=== PATIENT | female | born 1950 | race Hispanic/Latino ===

== ENCOUNTER → 2018-02-21 | Outpatient (CLI) | payer MEDICARE ==
[~2018-02-21] MED LIST: ACET-2160 PO; AEC81 PO; CHOL-9 PO; CYCL10TA7 PO; ESOM40CA54 PO; FLUT1DIS3 IH; IBUP-2070 PO; LEVO100T12 PO; LOSA1TAB37 PO; MELO-106 PO; OMEG100014 PO; PALI3TAB5 PO; PREG75 PO; ROSU10TA27 PO; SITA100T12 PO; TERA2CAP4 PO; TRAM50TA4 PO; VITA150T PO
== END | disposition home or self-care (01) ==
LOC: SHCH 14:57
PROVIDERS: ATTEND Internal Medicine Cardiovascular Disease
DX: I25.10 Atherosclerotic heart disease of native coronary artery without angina pectoris (principal); I10 Essential (primary) hypertension
CPT/HCPCS: 93306

== ENCOUNTER 2018-02-23 07:10 | Observation (INO) | payer MEDICARE ==
[~2018-02-23] VITALS: Ht 157.5 cm; Wt 74.5 kg
[2018-02-23 07:39] LABS: BASOPHILS % (AUTO) 1.2 % (0.0-5.0); EOSINOPHILS % (AUTO) 7.2 % (0.0-8.0); HEMATOCRIT 36.9 % (36-48); MEAN CORPUSCULAR HEMOGLOBIN 29.4 pg (27.0-33.0); MEAN CORPUSCULAR HGB CONC 34.6 g/dL (32.0-36.0); MONOCYTES % (AUTO) 7.2 % (3.0-13.0); NEUTROPHILS % (AUTO) 57.4 % (40.0-77.0); PLATELET COUNT (AUTO) 188 K/uL (130-400); RED BLOOD CELL COUNT(AUTO) 4.34 MIL/uL (4.00-5.50); RED CELL DISTRIBUTION WIDTH 15.1 % (11.0-15.5); WHITE BLOOD COUNT (AUTO) 6.7 K/uL (4.8-10.8)
[2018-02-23] MEDS ORDERED: ASPIRIN 325 MG TABLET ONE (07:42)
[2018-02-23] MEDS ORDERED: NITROGLYCERIN 0.4 MG SL TAB SL ONE (07:43)
[2018-02-23 07:54] LABS: CREATININE 0.9 mg/dL (0.5-1.5); POTASSIUM 3.1 mmol/L (3.5-5.1)
[2018-02-23 07:58] LABS: ALBUMIN 3.7 g/dL (3.5-5.0); BILIRUBIN,TOTAL 0.4 mg/dL (0.2-1.0); TOTAL PROTEIN, SERUM 7.6 g/dL (6.0-8.3)
[2018-02-23 08:00] LABS: INR 0.95 (0.85-1.15); PARTIAL THROMBOPLASTIN TIME 29.4 SEC (26.3-35.5)
[2018-02-23] MEDS ORDERED: POTASSIUM CHLORIDE 20 MEQ ERTAB PO ONE (08:35)
[2018-02-23] MEDS ORDERED: MAGNESIUM 2GM PREMIX 50ML 50 ML IV ONE (09:29)
[2018-02-23] MEDS ORDERED: IOPAMIDOL-370 100 ML VIAL IV ONE (10:48)
[2018-02-23] MEDS ORDERED: ENOXAPARIN SODIUM 40 MG/0.4 ML SYRINGE SQ ONE (14:34)
[2018-02-23 15:59] LABS: CREATINE KINASE MB 1.1 ng/mL (0.5-3.6); CREATINE KINASE, TOTAL 116 U/L (21-232); MYOGLOBIN 36 ng/mL (10-92); TROPONIN I < 0.04 ng/mL (0.00-0.06)
[2018-02-23 17:06] VITALS: BP 137/78
[2018-02-23] MEDS ORDERED: ONDANSETRON HCL MDV 20ML 2 MG/ML VIAL IVP PRN (17:45)
[2018-02-23] MEDS ORDERED: LACTULOSE 20 GM/30 ML UDCUP PO PRN (17:45)
[2018-02-23] MEDS ORDERED: NITROGLYCERIN 0.4 MG SL TAB SL PRN (17:45)
[2018-02-23] MEDS ORDERED: ACETAMINOPHEN 325 MG TAB PO PRN (17:45)
[2018-02-23] MEDS ORDERED: CYCL10TA7 PO (18:06)
[2018-02-23] MEDS ORDERED: TRAM50TA4 PO (18:06)
[2018-02-23] MEDS ORDERED: OMEG100014 PO (18:06)
[2018-02-23] MEDS ORDERED: LOSA1TAB37 PO (18:06)
[2018-02-23] MEDS ORDERED: ROSU10TA27 PO (18:06)
[2018-02-23] MEDS ORDERED: FLUT1DIS3 IH (18:06)
[2018-02-23] MEDS ORDERED: PREG75 PO (18:06)
[2018-02-23] MEDS ORDERED: PALI3TAB5 PO (18:06)
[2018-02-23] MEDS ORDERED: VITA150T PO (18:06)
[2018-02-23] MEDS ORDERED: SITA100T12 PO (18:06)
[2018-02-23] MEDS ORDERED: IBUP-2070 PO (18:06)
[2018-02-23] MEDS ORDERED: TERA2CAP4 PO (18:06)
[2018-02-23] MEDS ORDERED: CHOL-9 PO (18:06)
[2018-02-23] MEDS ORDERED: MELO-106 PO (18:06)
[2018-02-23] MEDS ORDERED: AEC81 PO (18:06)
[2018-02-23] MEDS ORDERED: LEVO100T12 PO (18:06)
[2018-02-23] MEDS ORDERED: ACET-2160 PO (18:06)
[2018-02-23] MEDS ORDERED: ESOM40CA54 PO (18:06)
[2018-02-23 19:22] VITALS: BP 144/67
[2018-02-23 23:21] VITALS: BP 138/77
[2018-02-23 23:53] LABS: CREATINE KINASE MB 0.8 ng/mL (0.5-3.6); CREATINE KINASE, TOTAL 97 U/L (21-232); MYOGLOBIN 31 ng/mL (10-92); TROPONIN I < 0.04 ng/mL (0.00-0.06)
[2018-02-24] MEDS ORDERED: HYDRALAZINE HCL 20 MG/ML VIAL IV PRN (00:30)
[2018-02-24] MEDS ORDERED: IPRATROPIUM/ALBUTEROL SULFATE 3 ML SOLUTION IH PRN (00:30)
[2018-02-24 03:34] LABS: HEMATOCRIT 36.4 % (36-48); MEAN CORPUSCULAR HEMOGLOBIN 29.6 pg (27.0-33.0); MEAN CORPUSCULAR HGB CONC 34.7 g/dL (32.0-36.0); MEAN CORPUSCULAR VOLUME 85.3 fL (79-99); PLATELET COUNT (AUTO) 199 K/uL (130-400); RED BLOOD CELL COUNT(AUTO) 4.27 MIL/uL (4.00-5.50); RED CELL DISTRIBUTION WIDTH 15.7 % (11.0-15.5)
[2018-02-24 03:53] LABS: HEMOGLOBIN A1C 6.5 % (4.0-6.0)
[2018-02-24 04:01] LABS: CREATININE 0.7 mg/dL (0.5-1.5); MAGNESIUM 1.6 mg/dL (1.80-2.40); POTASSIUM 3.4 mmol/L (3.5-5.1); THYROID STIMULATING HORMONE 3.99 uIU/mL (0.36-3.74)
[2018-02-24 04:21] VITALS: BP 132/79
[2018-02-24] MEDS ORDERED: LEVOTHYROXINE 100 MCG TABLET PO SCH (06:30)
[2018-02-24 07:00] VITALS: BP 123/59
[2018-02-24] MEDS ORDERED: INSULIN HUMULIN R 100 UNIT/ML 3ML SQ SCH (07:30)
[2018-02-24] MEDS ORDERED: SUPER B COMPLEX PO SCH (09:00)
[2018-02-24] MEDS ORDERED: ENOXAPARIN SODIUM 40 MG/0.4 ML SYRINGE SQ SCH (09:00)
[2018-02-24] MEDS ORDERED: FISH OIL 1000 MG/CAP PO SCH (09:00)
[2018-02-24] MEDS ORDERED: LOSARTAN/HYDROCHLOROTHIAZIDE 50-12.5MG TABLET PO SCH (09:00)
[2018-02-24] MEDS ORDERED: LINAGLIPTIN 5 MG TABLET PO SCH (09:00)
[2018-02-24] MEDS ORDERED: PREGABALIN 75 MG CAPSULE PO SCH (09:00)
[2018-02-24] MEDS ORDERED: CYCLOBENZAPRINE HCL 10 MG TABLET PO SCH (09:00)
[2018-02-24] MEDS ORDERED: METOPROLOL TARTRATE 25 MG TAB PO SCH (09:00)
[2018-02-24] MEDS ORDERED: FAMOTIDINE 20MG TAB 20 MG TAB PO SCH (09:00)
[2018-02-24] MEDS ORDERED: PALIPERIDONE 3 MG PO SCH (09:00)
[2018-02-24] MEDS ORDERED: PANTOPRAZOLE SODIUM 40 MG TABLET.DR PO SCH (09:00)
[2018-02-24] MEDS ORDERED: CHOLECALCIFEROL 10000 UNIT PO SCH (09:00)
[2018-02-24] MEDS ORDERED: MAGNESIUM 2GM PREMIX 50ML 50 ML IV SCH (09:00)
[2018-02-24] MEDS ORDERED: ASPIRIN 81 MG EC TAB PO SCH (09:00)
[2018-02-24] MEDS ORDERED: TRAMADOL HCL 50 MG TABLET PO SCH (09:00)
[2018-02-24] MEDS ORDERED: ATORVASTATIN CALCIUM 20 MG TABLET PO SCH (21:00)
[2018-02-24] MEDS ORDERED: TERAZOSIN HCL 2 MG CAPSULE PO SCH (21:00)
== END 2018-02-24 11:00 | disposition home or self-care (01) ==
LOC: EDH 07:10 → EDHIP 11:59 → 2BH 16:38 → 2DH 02-24 05:07
PROVIDERS: ADMIT Family Medicine; ATTEND Family Medicine
DX: R07.89 Other chest pain (principal); E11.65 Type 2 diabetes mellitus with hyperglycemia; I25.10 Atherosclerotic heart disease of native coronary artery without angina pectoris; I10 Essential (primary) hypertension; J45.909 Unspecified asthma, uncomplicated; E03.9 Hypothyroidism, unspecified; K21.9 Gastro-esophageal reflux disease without esophagitis; E78.5 Hyperlipidemia, unspecified; E83.42 Hypomagnesemia; E87.6 Hypokalemia; R79.1 Abnormal coagulation profile; F31.9 Bipolar disorder, unspecified; F20.9 Schizophrenia, unspecified; Z95.5 Presence of coronary angioplasty implant and graft; Z96.611 Presence of right artificial shoulder joint; Z90.49 Acquired absence of other specified parts of digestive tract
CPT/HCPCS: 36415 ×2; 71045; 71275; 80048; 80053; 80061; 82550 ×3; 82553 ×2; 82948 ×3; 83036; 83735 ×2; 83874 ×2; 83880; 84443; 84484 ×3; 85025; 85027; 85378; 85610; 85730; 93005 ×3; 94664; 96372; 99285; G0378 ×23; J1650 ×2; J3475; Q9967

== ENCOUNTER 2024-02-08 05:40 | Observation (INO) | payer OTHER ==
[2024-02-02 13:04] VITALS: BP 114/62; PULSE 61; RESP 17
[~2024-02-08] VITALS: Ht 152.4 cm; Wt 66.5 kg
[2024-02-08] VITALS (26 sets, daily range): BP systolic 119–137; BP diastolic 54–76; PULSE 62–78; RESP 15–20; O2SAT 96–97
[~2024-02-08 05:40] MED LIST changes: -ACET-2160 PO; +ALBU6.7H14 IH; +BIMA12.5OS OU; -CHOL-9 PO; -CYCL10TA7 PO; +EMPA10TA PO; -ESOM40CA54 PO; -FLUT1DIS3 IH; +HYDR12.54 PO; -IBUP-2070 PO; -LEVO100T12 PO; +LEVO125C4 PO; -LOSA1TAB37 PO; -MELO-106 PO; +METF-446 PO; +MV-M1TAB57 PO; +OLME20TA68 PO; +OLOP5DRO26 OU; -OMEG100014 PO; -PALI3TAB5 PO; -PREG75 PO; -ROSU10TA27 PO; +ROSU10TA28 PO; -TRAM50TA4 PO; -VITA150T PO
[2024-02-08] MEDS: ACETAMINOPHEN 1,000 MG/100 ML VIAL IV ONE (06:43)
[2024-02-08] MEDS: FAMOTIDINE 20MG VIAL IV ONE (06:44)
[2024-02-08] MEDS ORDERED: ROPIVACAINE 0.5% 5MG/ML 30ML ONE (06:45)
[2024-02-08] MEDS ORDERED: FENTANYL CITRATE PF 50 MCG/1 ML 2ML VIAL ONE (06:51)
[2024-02-08] MEDS ORDERED: LIDOCAINE PF 100MG/5ML (2%) SYRINGE 5ML ONE (06:51)
[2024-02-08] MEDS ORDERED: ROCURONIUM BROMIDE 10MG/1ML 5ML VL ONE ×2 (06:51→08:48)
[2024-02-08] MEDS ORDERED: PROPOFOL 10 MG/ML 20ML VIAL IV ONE (06:51)
[2024-02-08] MEDS ORDERED: ONDANSETRON 4MG INJ ONE (07:39)
[2024-02-08] MEDS ORDERED: DEXAMETHASONE SOD PHOSPHATE 10MG/ML 1ML VIAL ONE (07:39)
[2024-02-08] MEDS: CEFAZOLIN SODIUM 1 GM VIAL IVPB ONE (07:45)
[2024-02-08] MEDS: CEFAZOLIN SODIUM 2 GM VIAL ONE (08:14)
[2024-02-08] MEDS ORDERED: EPHEDRINE SULFATE 50 MG/ML AMPULE ONE (08:14)
[2024-02-08] MEDS: 0.9%NACL 1000ML 1,000 ML IV ONE (08:14)
[2024-02-08] MEDS: CLINDAMYCIN IVPB 900MG/50ML 50 ML IV ONE (08:14)
[2024-02-08] MEDS ORDERED: NEOSTIGMINE METHYLSULFATE 1MG/ML IV ONE (09:38)
[2024-02-08] MEDS ORDERED: GLYCOPYRROLATE 0.2 MG/ML 5 ML VIAL ONE (09:38)
[2024-02-08] MEDS ORDERED: POTASSIUM CHLORIDE 10% ELIXIR 20 MEQ/15 ML UDCUP PO PRN (10:00)
[2024-02-08] MEDS ORDERED: KCL 20 MEQ ERTAB PO PRN (10:00)
[2024-02-08] MEDS ORDERED: FE FUMARATE/FA/MV, MIN COMB#15 1 TAB PO PRN (10:00)
[2024-02-08] MEDS ORDERED: CALCIUM CARB 500MG PO PRN (10:00)
[2024-02-08] MEDS ORDERED: POTASSIUM CHLORIDE 20MEQ/100ML 100 ML IV PRN (10:00)
[2024-02-08] MEDS ORDERED: ONDANSETRON 4MG INJ IVP PRN (10:00)
[2024-02-08] MEDS ORDERED: CYCLOBENZAPRINE HCL 10 MG TABLET PO PRN (10:00)
[2024-02-08] MEDS: KETOROLAC 15MG/ML VIAL (15MG/ML) IV SCH (10:26)
[2024-02-08] MEDS: KETOROLAC 15MG/ML VIAL (15MG/ML) ONE (10:26)
[2024-02-08] MEDS: CEFAZOLIN SODIUM 2 GM VIAL IVPB SCH (14:56)
[2024-02-08] MEDS: GABAPENTIN 100 MG CAPSULE PO SCH (14:56)
[2024-02-08] MEDS: 0.9%NACL 1000ML 1,000 ML IV SCH (15:07)
[2024-02-08] MEDS ORDERED: ALBUTEROL 0.083% 2.5 MG/3 ML INH IH PRN (16:00)
[2024-02-08] MEDS: METFORMIN HCL 500 MG TABLET PO SCH (17:36)
[2024-02-08] MEDS: ATORVASTATIN 40 MG TABLET PO SCH (20:13)
[2024-02-08] MEDS: DOCUSATE SODIUM 100 MG CAP PO SCH (20:13)
[2024-02-08] MEDS: TERAZOSIN 2 MG CAPSULE PO SCH (20:14)
[2024-02-08] MEDS: HYDROCODONE/ACETAMINOPHEN 5/325 MG TAB PO PRN (20:14)
[2024-02-08] MEDS: OLOPATADINE HCL 0.1% 5ML DROPS OU SCH (20:15)
[2024-02-08] MEDS: TRAMADOL HCL 50 MG TABLET PO PRN (23:16)
[2024-02-09] VITALS: BP 102/56; PULSE 65; RESP 20
[2024-02-09 04:00] VITALS: BP 102/50; PULSE 67; RESP 18
[2024-02-09 05:08] LABS: HEMATOCRIT 26.3 % (36-48); MEAN CORPUSCULAR HEMOGLOBIN 26.9 pg (27.0-33.0); MEAN CORPUSCULAR HGB CONC 31.9 g/dL (32.0-36.0); MEAN CORPUSCULAR VOLUME 84.3 fL (79-99); RED BLOOD CELL COUNT(AUTO) 3.12 MIL/uL (4.00-5.50); RED CELL DISTRIBUTION WIDTH 15.1 % (11.0-15.5); WHITE BLOOD COUNT (AUTO) 7.1 K/uL (4.8-10.8)
[2024-02-09 05:10] LABS: CREATININE 1.1 mg/dL (0.5-1.0); POTASSIUM 3.7 mmol/L (3.5-5.1)
[2024-02-09] MEDS ORDERED: LEVOTHYROXINE 125 MCG TABLET PO SCH (06:30)
[2024-02-09 07:47] VITALS: BP 108/58; PULSE 63; RESP 18
[2024-02-09 07:50] VITALS: O2SAT 98
[2024-02-09] MEDS: (Olmesartan Medoxomil 20 MG) PO SCH (09:00)
[2024-02-09] MEDS: BIMATOPROST OU SCH (09:00)
[2024-02-09] MEDS: (Sitagliptin Phosphate (Januvia) 100 MG) PO SCH (09:00)
[2024-02-09] MEDS: CALCIUM PO SCH (09:00)
[2024-02-09] MEDS: FOLIC ACID PO SCH (09:00)
[2024-02-09] MEDS: MV MN PO SCH (09:00)
[2024-02-09] MEDS: VIT K PO SCH (09:00)
[2024-02-09] MEDS: POLYETHYLENE GLYCOL 3350 17 GM POWD.PACK PO SCH (09:19)
[2024-02-09] MEDS: HYDROCHLOROTHIAZIDE 25 MG TABLET PO SCH (09:19)
[2024-02-09] MEDS: EMPAGLIFLOZIN 10MG TABLET PO SCH (09:19)
[2024-02-09] MEDS ORDERED: POTA-200 PO (09:28)
[2024-02-09] MEDS ORDERED: FLUT1AER IH (09:28)
[2024-02-09] MEDS ORDERED: PANT40TA54 PO (09:28)
[2024-02-09] MEDS ORDERED: KETOROLAC 15MG/ML VIAL (15MG/ML) IV PRN (10:00)
[2024-02-09 11:00] VITALS: BP 99/59; PULSE 69; RESP 17
[2024-02-09] MEDS ORDERED: ASPI-1012 PO (13:27)
[2024-02-09] MEDS ORDERED: DOCU-116 PO (13:27)
[2024-02-09] MEDS ORDERED: HYDR-4060 PO (13:27)
[2024-02-09] MEDS ORDERED: CYCL-309 PO (13:27)
[2024-02-09 15:09] VITALS: BP 108/57; PULSE 68; RESP 17
[2024-02-11] MEDS ORDERED: BISACODYL 10 MG SUPP.RECT RC PRN (10:00)
== END 2024-02-09 16:00 | disposition home or self-care (01) ==
LOC: DAH 05:40 → DAHIP 05:41 → DAH 05:41 → 4CH 14:45
PROVIDERS: ADMIT Student in an Organized Health Care Education/Training Program; ATTEND Student in an Organized Health Care Education/Training Program
DX: M19.012 Primary osteoarthritis, left shoulder (principal); M75.102 Unspecified rotator cuff tear or rupture of left shoulder, not specified as traumatic; D62 Acute posthemorrhagic anemia; J45.909 Unspecified asthma, uncomplicated; I10 Essential (primary) hypertension; E11.9 Type 2 diabetes mellitus without complications; E78.5 Hyperlipidemia, unspecified; K21.9 Gastro-esophageal reflux disease without esophagitis; F20.9 Schizophrenia, unspecified; F31.9 Bipolar disorder, unspecified; E03.9 Hypothyroidism, unspecified; I25.10 Atherosclerotic heart disease of native coronary artery without angina pectoris; Z98.890 Other specified postprocedural states; Z79.899 Other long term (current) drug therapy
CPT/HCPCS: 82040; 84134; 86140; 36415 ×2; 87641; 64415; 23472; 96365; 96366; 96375; 82948 ×5; 73030; 97161; 97116 ×2; 97530 ×6; 94664; 96376; 80048; 85027; G0378 ×23; A4663; J7030 ×2; A4565; C1776; J3490 ×6; J3010; J0690 ×4; J1100; J2001; J2704; J2405; J2710; J2795; J1885 ×3; G0168; A4930 ×2; A6254; A5120; A4215; A4223; A4222; A4221

== ENCOUNTER → 2025-03-26 | Outpatient (CLI) | payer OTHER ==
[~2025-03-26] MED LIST changes: -AEC81 PO; +ASPI-1012 PO; +CYCL-309 PO; +DOCU-116 PO; +FLUT1AER IH; +HYDR-4060 PO; -LEVO125C4 PO; +LEVO125C5 PO; +PANT40TA54 PO; +POTA-200 PO; -ROSU10TA28 PO; +ROSU10TA72 PO
--- NOTE | 2025-03-26 11:03 | HMCIMG ---
Exam Type: FOOT LIMITED 2VWS LT Clinical Information: LT foot pain Comparison: None Findings: The examination is unremarkable except for calcaneal spurs. No fractures or dislocations are seen. No radiopaque foreign bodies are noted. Soft tissues are preserved. IMPRESSION: Calcaneal spurs.
== END | disposition home or self-care (01) ==
LOC: RAH 10:11
PROVIDERS: ATTEND Internal Medicine
DX: M77.32 Calcaneal spur, left foot (principal); M79.672 Pain in left foot
CPT/HCPCS: 73620

== ENCOUNTER → 2025-09-12 | Outpatient (CLI) | payer OTHER ==
[~2025-09-12] MED LIST changes: -ROSU10TA72 PO; +ROSU10TA98 PO
--- NOTE | 2025-09-12 13:54 | HMCIMG ---
EXAM: CR FACIAL BONES, 3 VIEWS CLINICAL HISTORY: Headache. Facial pain. COMPARISON: None provided. TECHNIQUE: Three views of the facial bones were obtained. FINDINGS: Calvarium: There is no evidence of a skull fracture. No destructive abnormality observed. Sclerotic foci projecting upon the skull on the left side possible metastatic disease possibly from breast cancer. Recommend follow up with bone scan and mammographic studies. Soft tissues: No focal soft tissue abnormality. IMPRESSION: 1. Sclerotic foci projecting upon the skull on the left side possible metastatic disease possibly from breast cancer. Recommend follow up with bone scan and mammographic studies. 2. No focal fracture. /[place]
== END | disposition home or self-care (01) ==
LOC: RAH 09:28
PROVIDERS: ATTEND Internal Medicine
DX: R51.9 Headache, unspecified (principal)
CPT/HCPCS: 70150

== ENCOUNTER → 2025-10-14 | Outpatient (CLI) | payer OTHER ==
--- NOTE | 2025-10-15 06:09 | HMCIMG ---
EXAM: CR Skull, 3 View. CLINICAL HISTORY: Abnormal findings on diagnostic imaging of the skull and head. COMPARISON: X-ray facial bones dated 09/12 FINDINGS: BONES: No acute fracture. Two calcific opacities, in the left temporal and left parasagittal parietal regions, measuring 1.6 x 1.5 cm and 1.6 x 1.2 cm, respectively SINUSES: Unremarkable. No air-fluid levels. SOFT TISSUES: The soft tissues are unremarkable. IMPRESSION: No acute abnormalities. Two calcific opacities, probably in the left temporal and left parasagittal parietal lobes of the brain, measuring 1.6 x 1.5 cm and 1.6 x 1.2 cm, respectively. Suggested CT correlation /[place]
== END | disposition home or self-care (01) ==
LOC: RAH 12:15
PROVIDERS: ATTEND Internal Medicine
DX: R93.0 Abnormal findings on diagnostic imaging of skull and head, not elsewhere classified (principal); R51.9 Headache, unspecified
CPT/HCPCS: 70250

== ENCOUNTER → 2025-10-18 | Outpatient (CLI) | payer OTHER ==
--- NOTE | 2025-10-18 16:20 | HMCIMG ---
EXAM: CT SCAN OF THE BRAIN WITHOUT CONTRAST CLINICAL HISTORY: Abnormal findings on prior diagnostic imaging of the skull/head. TECHNIQUE: Axial computed tomography images of the head and brain were obtained without intravenous contrast. Coronal and sagittal reformatted images were generated. Radiation dose reduction was achieved using ALARA (as low as reasonably achievable) principles, including automatic exposure control, adjustment of tube current and voltage to patient size, and iterative reconstruction techniques. RADIATION DOSE: CTDIvol 49.30 mGy; DLP 886.40 mGycm. CONTRAST: No intravenous contrast administered. COMPARISON: Skull radiographs from 10/14/2025 and facial bone radiographs from 09/12/2025. FINDINGS: Brain parenchyma: Two large, well-defined calcified parenchymal nodules are present in the region of the left posterior external capsule and left superior frontal gyrus, each with mild adjacent encephalomalacia and volume loss. No acute intraparenchymal hemorrhage, mass lesion, or large territorial infarct is identified. Graywhite matter differentiation is preserved. White matter: Scattered hypodense foci in the bilateral periventricular and subcortical white matter are most compatible with chronic small vessel ischemic change. No confluent low-attenuation lesion suggesting acute demyelination is seen. Ventricles and cisterns: Ventricular system is normal in configuration with prominence of the sulci, basal cisterns, and sylvian fissures in keeping with age-related parenchymal volume loss. No hydrocephalus or midline shift. Basal cisterns are patent. Extra-axial spaces: No extra-axial fluid collection or acute subdural/epidural hematoma is identified. Posterior fossa: Brainstem and cerebellum are unremarkable without focal lesion or mass effect. Sellar/parasellar region: Pituitary gland, parasellar structures, and optic chiasm are unremarkable on this noncontrast study. CP angles and IACs: Cerebellopontine angle cisterns are clear, and the internal auditory canals are unremarkable. Skull and sinuses: Calvarium and skull base demonstrate normal density without acute fracture or aggressive osseous lesion. Mild mucosal thickening is present in the bilateral mastoid air cells. A mucosal polyp or polypoid thickening is seen in the left maxillary sinus. Remaining visualized paranasal sinuses are otherwise clear. IMPRESSION: * No CT evidence of acute intracranial hemorrhage, large territorial infarct, mass effect, or hydrocephalus. * Two calcified parenchymal nodules in the left posterior external capsule and left superior frontal gyrus with mild adjacent encephalomalacia, most compatible with chronic calcified granulomatous lesions or prior neurocysticercosis, without associated mass effect or edema. No specific additional neuroimaging follow-up is required for these chronic-appearing calcifications alone unless new focal neurologic symptoms develop. * Chronic small vessel ischemic changes in the supratentorial white matter and mild age-related cerebral volume loss. 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 * Compared with the skull and facial bone radiographs from 09/12/2025 and 10/14/2025, the previously described intracranial calcific opacities correspond to the now well-characterized calcified parenchymal nodules in the left hemisphere on CT, with no superimposed acute intracranial abnormality identified. /[place]
== END | disposition home or self-care (01) ==
LOC: RAH 13:34
PROVIDERS: ATTEND Internal Medicine
DX: I67.82 Cerebral ischemia (principal); G93.89 Other specified disorders of brain; R93.0 Abnormal findings on diagnostic imaging of skull and head, not elsewhere classified
CPT/HCPCS: 70450